=== PATIENT | male | born 1950 | race Caucasian/White ===

== ENCOUNTER 2021-06-04 14:23 | Emergency (ER) | payer OTHER, MEDICARE ==
[2021-06-04 14:39] VITALS: BP 148/93; PULSE 92; TEMP 98.4; BMI 22.8
== END 2021-06-04 15:28 | disposition home or self-care (01) ==
LOC: FER 14:23
DX: M20.012 Mallet finger of left finger(s) (principal)
CPT/HCPCS: 73140-TC-LT-FY; 99284-25